=== PATIENT | female | born 1980 | race Caucasian/White ===

== ENCOUNTER → 2018-02-09 | Day surgery (SDC) | payer OTHER ==
[2018-01-22 09:22] VITALS: BMI 47.0
--- NOTE | 2018-01-22 09:55 | PAT Medication Instructions ---
Service Date Jan 22, 2018. Current Home Medication List Duloxetine Hcl (Cymbalta), 20 MG PO QPM Levalbuterol Tartrate (Levalbuterol Tartrate Hfa), 2 PUFFS INH PRN Lorazepam (Ativan), 2 MG PO BID PRN for PRN Medroxyprogesterone Acetate (Provera), 10 MG PO UD PRN for PRN Medication Instructions For Your Scheduled Surgery -Continue as directed: Medroxyprogesterone Acetate (Provera), 10 MG PO UD PRN for PRN - Take the following medications the morning of surgery with a sip of water: Levalbuterol Tartrate (Levalbuterol Tartrate Hfa), 2 PUFFS INH PRN (if needed) Lorazepam (Ativan), 2 MG PO BID PRN for PRN (if needed) - Take the following medications as scheduled the night before surgery: Duloxetine Hcl (Cymbalta), 20 MG PO QPM Levalbuterol Tartrate (Levalbuterol Tartrate Hfa), 2 PUFFS INH PRN (if needed) Lorazepam (Ativan), 2 MG PO BID PRN for PRN (if needed) If you have any questions please call us at [phone] or [phone] or [phone]
--- NOTE | 2018-01-22 10:45 | DIAGNOSTIC IMAGING REPORT ---
CHEST 2 VIEWS ROUTINE CLINICAL HISTORY: Pre-op shoulder scope, recent flu preoperative evaluation COMPARISON STUDY: 07/20/2014 FINDINGS: The bones soft tissues and hemidiaphragms are normal. The cardiomediastinal silhouette is normal. The lungs are clear. The pulmonary vasculature is normal. IMPRESSION: Negative chest. The above report was generated using voice recognition software. It may contain grammatical, syntax or spelling errors. Electronically signed by: Darrick Sadler M.D. 01/22/2018 10:43 AM Dictated Date/Time: 01/22/2018 10:43 AM
[2018-01-22 11:11] LABS: BASO % 0.2 %; BASO ABS # 0.02 K/uL (0-0.2); EOS % 5.8 %; EOS ABS # 0.55 K/uL (0-0.5); HEMATOCRIT 36.5 % (37-47); HEMOGLOBIN 12.2 g/dL (12.0-16.0); IG# 0.04 K/uL (0.00-0.02); LYMPH % 32.5 %; LYMPH ABS # 3.11 K/uL (1.2-3.4); MEAN CELL VOLUME 76.2 fL (80-100); MEAN CORPUSCULAR HEMOGLOBIN 25.5 pg (25-34); MEAN CORPUSCULAR HGB CONC 33.4 g/dl (32-36); MEAN PLATELET VOLUME 9.4 fL (7.4-10.4); MONO % 5.1 %; MONO ABS # 0.49 K/uL (0.11-0.59); NEUT ABS # 5.35 K/uL (1.4-6.5); PLATELET COUNT 306 K/uL (130-400); RED CELL DISTRIBUTION WIDTH CV 14.1 % (11.5-14.5); RED CELL DISTRIBUTION WIDTH SD 39.5 fL (36.4-46.3); WHITE BLOOD COUNT 9.56 K/uL (4.8-10.8)
[2018-01-22 11:16] LABS: INR 0.9 (0.9-1.1); PTT PATIENT 28.2 SECONDS (21.0-31.0)
[2018-01-22 11:20] LABS: CREATININE 0.81 mg/dl (0.60-1.20); POTASSIUM 3.8 mmol/L (3.5-5.1)
--- NOTE | 2018-02-08 19:14 | HISTORY & PHYSICAL EXAMINATION ---
DATE OF ADMISSION: 02/09/2018 CHIEF COMPLAINT: Chronic left shoulder pain. HISTORY OF PRESENT ILLNESS: This is a 37-year-old female patient of Dr. Torrez'nat complaining of chronic left shoulder pain since 07/2017. The patient reports no specific injury. She has had chronic pain since then and has failed conservative treatment including physical therapy and intraarticular injections. The patient had an MRI with that confirmed impingement, bursitis. She wished to proceed with a left shoulder arthroscopic subacromial decompression, bursectomy, and possible debridement. PAST MEDICAL HISTORY: Anxiety, osteoarthritis of the back, spine problems, obesity. SOCIAL HISTORY: Nonsmoker, nondrinker. PAST SURGICAL HISTORY: Back surgery, knee surgery, bilateral carpal tunnel surgery, cholecystectomy, wisdom teeth, tonsils and adenoids. FAMILY HISTORY: Noncontributory. REVIEW OF SYSTEMS: Chronic left shoulder pain since 07/2017. Otherwise, denies any shortness of breath, chest pain, nausea, vomiting, or any joint complaints. MEDICATIONS: Cymbalta 30 mg b.i.d., Ativan 2 mg as needed. ALLERGIES: BETAMETHASONE, ALPRAZOLAM, CITALOPRAM, DIAZEPAM, AUGMENTIN, TAMIFLU, LYRICA, OMNICEF, PREDNISONE, BUPIVACAINE. PHYSICAL EXAMINATION: GENERAL: Well-developed, well-nourished 37-year-old female in no acute distress. She is alert and oriented x3 and pleasant. HEENT: Normocephalic, atraumatic. Extraocular motions are intact. Pupils are equal and reactive to light. HEART: Regular rate and rhythm, no murmurs are appreciated. LUNGS: Clear. ABDOMEN: Soft and nontender. Bowel sounds are present. EXTREMITIES: Left shoulder active range of motion up to 160, passively full with pain. She has positive impingement maneuvering. She has 3+ to 4/5 strength. NEUROLOGIC: Neurovascularly, she is intact in her left upper extremity. DIAGNOSES: Left shoulder impingement and bursitis with a history of anxiety, osteoarthritis, spine problems, obesity. PLAN: The patient was advised of her diagnosis. Indications, risks, benefits, postop course have all been reviewed. The patient wished to proceed with a left shoulder arthroscopic subacromial decompression, bursectomy, and possible debridement. Necessary consent forms, preoperative testing, and clearances will be obtained.
[~2018-02-09] VITALS: Ht 175.3 cm; Wt 145.5 kg
[~2018-02-09] MED LIST: ACET300T2 PO; ACETAMINOPHEN 1000 MG/100 ML IV IV ONE; ATROPINE SULFATE 0.1 MG/ML 5ML SYR IV PRN; ATV/2 PO; BUPIVACAINE 0.25% 30 ML VIAL ONE; CLINDAMYCIN 600 MG/54 ML D5W 54 ML IV SCH; CLINDAMYCIN PHOS 150 MG/ML 2 ML VIAL IV SCH; CYM/30 PO; DEXAMETHASONE SOD INJ 4 MG/ML VIAL ONE; ESMOLOL HCL 10 MG/ML 10 ML VIAL ONE; EpHEDrine SULFATE INJ 50 MG/ML AMP IV PRN; FENTANYL CITRATE INJ 50 MCG/1 ML 2 ML VIAL ONE; GLYCOPYRROLATE INJ 0.2 MG/ML VIAL ONE; HYDROmorphone INJ 1 MG/ML SYR IV PRN; LABETALOL HCL IV 5 MG/ML 20ML IV PRN; LACTATED RINGER'S 1000ML 1,000 ML IV SCH; LEVA45AE INH; LIDOCAINE HCL 2% 2 ML VIAL (20MG/ML) ONE; MEDR10TA PO; MIDAZOLAM HCL 1 MG/ML 2ML VIAL ONE; NEOSTIGMINE METHYLSULFATE 5 MG/5 ML SYR ONE; ONDANSETRON INJ 2 MG/ML 2 ML VIAL IV PRN; ONDANSETRON INJ 2 MG/ML 2 ML VIAL ONE; PHENYLEPHRINE 100MCG/ML 5ML SYR IV PRN; PROMETHAZINE HCL INJ 12.5 MG in SODIUM CHLORIDE 0.9% 50ML 50 ML IV PRN; PROPOFOL IV EMULSION 10 MG/ML 20 ML VIAL IV ONE; ROCURONIUM BROMIDE 10 MG/ML 5 ML VIAL IV ONE; SODIUM CHLORIDE 0.9% 1000ML 1,000 ML IV SCH
[2018-02-09 08:05] VITALS: BP 132/69; PULSE 75; TEMP 37; O2SAT 97; Ht 175.3 cm; Wt 145.5 kg
--- NOTE | 2018-02-09 09:29 | History & Physical Bridge Note ---
H&P Re-Evaluation Bridge Note: I have examined the patient, reviewed the History & Physical and in the interval since the performance of the History & Physical I have noted the following changes of clinical significance: No changes noted
--- NOTE | 2018-02-09 11:46 | [facility] Post Operative Brief Note ---
Immediate Operative Summary Operative Date Feb 09, 2018. Pre-Operative Diagnosis Left Shoulder Impingement and Bursitis Post-Operative Diagnosis Left Shoulder Impingement and Bursitis Procedure(s) Performed Left Shoulder Arthroscopic Subacromial Decompression, partial synovectomy,subacromial bursectomy Surgeon Dr. Torrez Activity Assistant Surgeon(s) MILLER Lyn Estimated Blood Loss 3ml Findings Consistent with Post-Op Diagnosis Specimens none per surgeon Drains None Anesthesia Type General Complication(s) none Disposition Disposition: Recovery Room / PACU
--- NOTE | 2018-02-09 12:01 | Discharge Instructions ---
Discharge Instructions Date of Service Feb 09, 2018. Admission Reason for Admission: Left Shoulder Impingement Syndrome, S/P Ruptured B Discharge Discharge Diagnosis / Problem: Left shoulder scope, decompression, bursectomy Discharge Goals Goal(s): Decrease discomfort Activity Recommendations Activity Limitations: as noted below . Instructions / Follow-Up Instructions / Follow-Up Follow printed instruction and home exercise sheets printed in your chart. Begin PT 2-3 days post op. Follow up with Dr. Torrez 10-12 days post op, call [phone] to confirm appt. Current Hospital Diet Patient's current hospital diet: Discharge Diet Recommended Diet: Regular Diet Procedures Procedures Performed: Left Shoulder Arthroscopic Subacromial Decompression, partial synovectomy,subacromial bursectomy Pending Studies Studies pending at discharge: no Medical Emergencies . Who to Call and When: Medical Emergencies: If at any time you feel your situation is an emergency, please call 911 immediately. . Non-Emergent Contact Non-Emergency issues call your: Primary Care Provider . "Provider Documentation" section prepared by Darrick Saravia. .
[2018-02-09] MEDS: FENTANYL CITRATE INJ 50 MCG/1 ML 2 ML VIAL IV PRN ×3 (12:13→12:22)
--- NOTE | 2018-02-09 12:30 | Anesthesiology Progress Note ---
Anesthesia Post Op Note Date & Time Feb 09, 2018 at 12:30 Vital Signs Pain Intensity: 6.0 Vital Signs Past 12 Hours Date Time Temp Pulse Resp B/P (MAP) Pulse Ox O2 Delivery O2 Flow Rate FiO2 02/09/18 12:20 61 16 127/71 97 Oxymask 3 02/09/18 12:10 54 14 126/78 96 Oxymask 3 02/09/18 12:00 65 16 131/79 97 Oxymask 5 02/09/18 11:53 36.8 76 16 138/74 98 Oxymask 5 02/09/18 08:05 37 75 20 132/69 (90) 97 Room Air Notes Mental Status: alert / awake / arousable, participated in evaluation Pt Amnestic to Procedure: Yes Nausea / Vomiting: adequately controlled Pain: adequately controlled Airway Patency, RR, SpO2: stable & adequate BP & HR: stable & adequate Hydration State: stable & adequate Anesthetic Complications: no major complications apparent Doing well. VSS.
[2018-02-09 12:45] VITALS: BP 105/48; PULSE 65; TEMP 36.9; O2SAT 91
[2018-02-09 13:13] VITALS: BP 133/87; PULSE 71; O2SAT 92
[2018-02-09 13:40] VITALS: BP 120/83; PULSE 73; TEMP 36.8; O2SAT 100
--- NOTE | 2018-02-09 17:31 | [facility] Operative Report ---
Operative Report Operative Date Feb 09, 2018. Pre-Operative Diagnosis Left Shoulder Impingement and Bursitis, biceps tendon rupture long head. Post-Operative Diagnosis Same mild synovitis glenoid humeral joint Procedure(s) Performed Left shoulder arthroscopy subacromial decompression subacromial bursectomy and partial synovectomy Surgeon Dr. Torrez Testing Specialist Surgeon(s) MILLER Lyn Estimated Blood Loss 3ml Findings Intact rotator cuff, absent long head biceps tendon, synovitis around labrum but intact labrum, normal good humeral joint surfaces, significant subacromial bursitis and type II acromion with impingement. Specimens none per surgeon Drains None Anesthesia General with local Complication(s) None Disposition Recovery Room / PACU Indications Left shoulder pain chronic failed conservative management. MRI demonstrates bursitis type II acromion absent biceps tendon Description of Procedure The patient was to the operating room anesthetized general anesthesia. The patient was positioned on the operating table in the 70 beach chair position. All of the other extremities were well-padded. The left upper extremity was prepped and draped in the usual sterile fashion. Examination demonstrated good passive range of motion no instability, patient is morbidly obese and had a very obese body and shoulder. Arthroscopy of the shoulder was performed via anterior and posterior arthroscopy portals. Posterior portal was placed in the soft spot and the anterior portal was placed in the rotator interval. Subsequent portals included lateral subacromial portal. The following findings were noted : The glenohumeral joint had normal articular surfaces rotator cuff is intact and the subscapularis supraspinous and infraspinatus. There was a fringe of inflamed synovium around the glenoid labrum but the labrum was intact. There was absent long head biceps tendon and no retained fragment within the joint. In subacromial space patient had chronic thickened subacromial bursitis little bit of fraying of the bursal surface of the cuff consistent with impingement type II shaped acromion with some prominence of the lateral aspect of the acromion possibly causing impingement. Attention was first taken to the minor debridement around the labrum trimming up the thickened inflamed synovial tissue. A thorough subacromial bursectomy was performed. A radio frequency ablative was used to ablate the bursa on the undersurface of the acromion. A 5.5 bur was used to plane down the acromion to a completely flat undersurface to bring up slightly anteriorly and smoothing out some of the prominent lateral side of the acromion to improve the subacromial space. There was active range of motion was no impingement. The portal sites were closed with interrupted nylon sutures. Sterile dressings were applied and a sling immobilizer. The patient tolerated the procedure well. Darrick Saravia was my first dyer in the procedure, he functioned as first dyer assisting in patient positioning, prepping and draping, arm positioning and instrument management during the procedure, perform the incisional closure and will participate in postoperative care of the patient. I attest to the content of the Intraoperative Record and any orders documented therein. Any exceptions are noted below.
== END | disposition home or self-care (01) ==
LOC: C.ACU 07:35
PROVIDERS: ATTEND Orthopaedic Surgery Sports Medicine
DX: M75.42 Impingement syndrome of left shoulder (principal); M75.52 Bursitis of left shoulder; M66.822 Spontaneous rupture of other tendons, left upper arm; E66.01 Morbid (severe) obesity due to excess calories; F41.9 Anxiety disorder, unspecified; F32.9 Major depressive disorder, single episode, unspecified; Z68.42 Body mass index [BMI] 45.0-49.9, adult; Z98.890 Other specified postprocedural states; Z90.49 Acquired absence of other specified parts of digestive tract; Z98.818 Other dental procedure status; Z90.89 Acquired absence of other organs; Z79.899 Other long term (current) drug therapy; Z88.1 Allergy status to other antibiotic agents; Z88.8 Allergy status to other drugs, medicaments and biological substances